=== PATIENT | male | born 1985 | race Caucasian/White ===

== ENCOUNTER 2024-03-15 22:02 | Emergency (ER) | payer OTHER ==
[~2024-03-15] VITALS: Ht 177.8 cm; Wt 116.4 kg
[2024-03-15 22:05] VITALS: O2SAT 98
[2024-03-15] MEDS: KETOROLAC 15MG/ML VIAL IM ONE (22:45)
[2024-03-16] MEDS ORDERED: LIDO700A15 TP (01:14)
[2024-03-16] MEDS ORDERED: NAPR-1176 MT (01:14)
[2024-03-16] MEDS: KETOROLAC 15MG/ML VIAL IM NR (02:03)
[2024-03-16 02:10] VITALS: BP 143/85; PULSE 90; RESP 20; TEMP 36.78072; O2SAT 98
== END 2024-03-16 02:11 | disposition home or self-care (01) ==
LOC: ER 22:02
DX: S82.891A Other fracture of right lower leg, initial encounter for closed fracture (principal); X50.1XXA Overexertion from prolonged static or awkward postures, initial encounter; Y93.89 Activity, other specified; Y92.89 Other specified places as the place of occurrence of the external cause; Y99.8 Other external cause status
CPT/HCPCS: 73610; 29515; 99283; 96372; J1885; Z7610